=== PATIENT | female | born 1950 | race African-American/Black ===

== ENCOUNTER → 2016-08-24 | Outpatient (CLI) | payer OTHER ==
[~2016-08-24] MED LIST: LISI10TA PO; ZOLP1TAB32 PO
[2016-08-24 07:48] LABS: HEMATOCRIT 36.1 % (35.0-46.0); MEAN CELL VOLUME 80.7 FL (80.0-100.0); MEAN CORPUSCULAR HGB CONC 33.4 % (32.0-36.0); PLATELET COUNT 334 TH/MM3 (150-450); RED BLOOD COUNT 4.48 MIL/MM3 (4.00-5.30); RED CELL DISTRIBUTION WIDTH 13.7 % (11.6-17.2); REVIEW FLAG FINAL; WHITE BLOOD COUNT 5.6 TH/MM3 (4.0-11.0)
[2016-08-24 08:38] LABS: ALKALINE PHOSPHATASE 91 U/L (45-117); ALT (GPT) 16 U/L (10-53); ANION GAP 11 MEQ/L (5-15); AST (GOT) 18 U/L (15-37); BICARBONATE 27.2 MEQ/L (21.0-32.0); BLOOD UREA NITROGEN 11 MG/DL (7-18); CHLORIDE 101 MEQ/L (98-107); GLOMERULAR FILTRATION RATE 83 ML/MIN (>89); GLUCOSE,FASTING 97 MG/DL (74-99); LDL CHOLESTEROL 157 MG/DL (0-99); POTASSIUM 3.5 MEQ/L (3.5-5.1); SODIUM (NA) 139 MEQ/L (136-145); TOTAL BILIRUBIN ADULT 0.3 MG/DL (0.2-1.0)
== END ==
LOC: CLAB 07:13
PROVIDERS: ATTEND Family Medicine
DX: I10 Essential (primary) hypertension (principal); G47.00 Insomnia, unspecified; E87.6 Hypokalemia; E55.9 Vitamin D deficiency, unspecified; R53.83 Other fatigue
CPT/HCPCS: 36415; 80053; 80061; 82306; 84443; 85027

== ENCOUNTER → 2017-01-27 | Outpatient (CLI) | payer OTHER ==
[2017-01-27 08:24] LABS: HEMATOCRIT 33.5 % (35.0-46.0); MEAN CELL VOLUME 82.8 FL (80.0-100.0); MEAN CORPUSCULAR HEMOGLOBIN 27.3 PG (27.0-34.0); MEAN CORPUSCULAR HGB CONC 32.9 % (32.0-36.0); PLATELET COUNT 319 TH/MM3 (150-450); RED BLOOD COUNT 4.05 MIL/MM3 (4.00-5.30); RED CELL DISTRIBUTION WIDTH 12.8 % (11.6-17.2); REVIEW FLAG FINAL; WHITE BLOOD COUNT 5.4 TH/MM3 (4.0-11.0)
[2017-01-27 08:43] LABS: ANION GAP 6 MEQ/L (5-15); AST (GOT) 12 U/L (15-37); BLOOD UREA NITROGEN 13 MG/DL (7-18); CHLORIDE 104 MEQ/L (98-107); GLOMERULAR FILTRATION RATE 94 ML/MIN (>89); GLUCOSE,FASTING 87 MG/DL (74-99); POTASSIUM 3.5 MEQ/L (3.5-5.1); SODIUM (NA) 139 MEQ/L (136-145)
[2017-01-27 08:44] LABS: ALT (GPT) 15 U/L (10-53)
[2017-01-27 08:53] LABS: ALKALINE PHOSPHATASE 81 U/L (45-117); HDL CHOLESTEROL 47.3 MG/DL (40.0-60.0); LDL CHOLESTEROL 139 MG/DL (0-99); TOTAL BILIRUBIN ADULT 0.4 MG/DL (0.2-1.0)
== END ==
LOC: CLAB 07:45
PROVIDERS: ATTEND Family Medicine
DX: I10 Essential (primary) hypertension (principal); G47.00 Insomnia, unspecified; E87.6 Hypokalemia; E55.9 Vitamin D deficiency, unspecified; R53.83 Other fatigue; Z91.09 Other allergy status, other than to drugs and biological substances
CPT/HCPCS: 36415; 80053; 80061; 82306; 84443; 85027

== ENCOUNTER → 2017-03-05 | Outpatient (CLI) | payer OTHER ==
[2017-03-05 07:59] LABS: AUTOMATED NEUTROPHIL # 1.8 TH/MM3 (1.8-7.7); BASOPHIL % 0.3 % (0.0-2.0); EOSINOPHIL # 0.1 TH/MM3 (0-0.4); EOSINOPHIL % 1.3 % (0.0-4.0); HEMATOCRIT 33.8 % (35.0-46.0); HEMO FLAGS DIFF FINAL; LYMPH % 48.8 % (9.0-44.0); LYMPHOCYTE # 2.2 TH/MM3 (1.0-4.8); MEAN CELL VOLUME 82.9 FL (80.0-100.0); MEAN CORPUSCULAR HGB CONC 32.6 % (32.0-36.0); MONO % 9.8 % (0.0-8.0); NEUT % 39.8 % (16.0-70.0); PLATELET COUNT 300 TH/MM3 (150-450); RED BLOOD COUNT 4.08 MIL/MM3 (4.00-5.30); RED CELL DISTRIBUTION WIDTH 13.5 % (11.6-17.2); RETIC % 1.5 % (0.4-3.0); REVIEW FLAG FINAL; WHITE BLOOD COUNT 4.6 TH/MM3 (4.0-11.0)
[2017-03-05 08:36] LABS: TRANSFERRIN IRON PROFILE 244 MG/DL (200-360)
[2017-03-05 09:10] LABS: FERRITIN 348 NG/ML (8-252)
== END ==
LOC: CLAB 07:24
PROVIDERS: ATTEND Family Medicine
DX: D64.9 Anemia, unspecified (principal)
CPT/HCPCS: 36415; 82607; 82728; 82746; 83010; 83540; 83550; 85025; 85044; 86880

== ENCOUNTER → 2017-03-30 | Outpatient (CLI) | payer OTHER ==
[2017-03-30 07:53] LABS: BLOOD, URINE NEG (NEG); GLUCOSE,URINE NEG (NEG); KETONE, URINE NEG (NEG); MUCUS URINE FEW /lpf (OCC); NITRITE,URINE NEG (NEG); PH, URINE 5.5 (5.0-8.5); SQUAMOUS EPITHELIAL CELL URINE <1 /hpf (0-5); URINE COLOR YELLOW (YELLW/STRAW)
[2017-03-31 23:52] LABS: THYROGLOBULN 8.3 ng/mL (2.8-40.9)
== END ==
LOC: CLAB 07:23
PROVIDERS: ATTEND Allergy & Immunology
DX: D89.89 Other specified disorders involving the immune mechanism, not elsewhere classified (principal)
CPT/HCPCS: 36415; 81001; 84432; 85652; 86038; 86800

== ENCOUNTER → 2017-06-28 | Outpatient (CLI) | payer OTHER ==
[~2017-06-28] MED LIST changes: +AMBI10TA PO; +LAMI250T PO; +VITA1000 PO; -ZOLP1TAB32 PO
[2017-06-28 08:12] LABS: HEMATOCRIT 32.9 % (35.0-46.0); HEMOGLOBIN 10.9 GM/DL (11.6-15.3); MEAN CELL VOLUME 82.1 FL (80.0-100.0); MEAN CORPUSCULAR HEMOGLOBIN 27.2 PG (27.0-34.0); MEAN CORPUSCULAR HGB CONC 33.1 % (32.0-36.0); MEAN PLATELET VOLUME 7.7 FL (7.0-11.0); PLATELET COUNT 308 TH/MM3 (150-450); RED BLOOD COUNT 4.01 MIL/MM3 (4.00-5.30); RED CELL DISTRIBUTION WIDTH 13.7 % (11.6-17.2)
[2017-06-28 08:36] LABS: ALBUMIN 3.8 GM/DL (3.4-5.0); AST (GOT) 14 U/L (15-37); BICARBONATE 29.3 MEQ/L (21.0-32.0); BLOOD UREA NITROGEN 9 MG/DL (7-18); CALCIUM 8.9 MG/DL (8.5-10.1); CHLORIDE 102 MEQ/L (98-107); CREATININE 0.75 MG/DL (0.50-1.00); GLOMERULAR FILTRATION RATE 94 ML/MIN (>89); GLUCOSE,FASTING 85 MG/DL (74-99); SODIUM (NA) 139 MEQ/L (136-145)
[2017-06-28 08:37] LABS: ALT (GPT) 15 U/L (10-53); CHOLESTEROL 207 MG/DL (120-200); TRIGLYCERIDES 121 MG/DL (42-150)
[2017-06-28 08:46] LABS: ALKALINE PHOSPHATASE 81 U/L (45-117); CHOLESTEROL/ HDL RATIO 4.51 RATIO; HDL CHOLESTEROL 45.8 MG/DL (40.0-60.0); LDL CHOLESTEROL 137 MG/DL (0-99); TOTAL BILIRUBIN ADULT 0.4 MG/DL (0.2-1.0); TOTAL PROTEIN 8.1 GM/DL (6.4-8.2)
== END ==
LOC: CLAB 07:30
PROVIDERS: ATTEND Family Medicine
DX: I10 Essential (primary) hypertension (principal); G47.00 Insomnia, unspecified; E87.6 Hypokalemia; E55.9 Vitamin D deficiency, unspecified; R53.83 Other fatigue; Z91.09 Other allergy status, other than to drugs and biological substances; Z68.26 Body mass index [BMI] 26.0-26.9, adult
CPT/HCPCS: 36415; 80053; 80061; 82306; 84443; 85027

== ENCOUNTER 2017-07-27 18:15 | Observation (INO) | payer OTHER ==
[~2017-07-27] VITALS: Ht 165.1 cm; Wt 60.0 kg
[2017-07-27 18:25] VITALS: BP 131/73; PULSE 72; RESP 18; TEMP 98.4; O2SAT 98
--- NOTE | 2017-07-27 19:40 | RADRPT ---
EXAM DATE/TIME: 07/27/2017 18:46 [place] COMPARISON: No previous studies available for comparison. INDICATIONS : Chest pain. MEDICAL HISTORY : Hypertension. SURGICAL HISTORY : None. ENCOUNTER: Initial ACUITY: 2 days PAIN SCORE: 4/10 LOCATION: Bilateral chest FINDINGS: PA and lateral views of the chest demonstrate the lungs to be symmetrically aerated without evidence of mass, infiltrate or effusion. The cardiomediastinal contours are unremarkable. Osseous structure s are intact. CONCLUSION: 1. No active disease. Mild kyphosis. Fabian Mckoy MD on July 27, 2017 at 19:38 Board Certified Radiologist. This report was verified electronically.
[2017-07-27 19:43] LABS: BASOPHIL % 0.5 % (0.0-2.0); EOSINOPHIL # 0.1 TH/MM3 (0-0.4); EOSINOPHIL % 1.3 % (0.0-4.0); HEMATOCRIT 34.2 % (35.0-46.0); HEMOGLOBIN 11.3 GM/DL (11.6-15.3); LYMPH % 50.3 % (9.0-44.0); LYMPHOCYTE # 2.6 TH/MM3 (1.0-4.8); MEAN CORPUSCULAR HEMOGLOBIN 26.8 PG (27.0-34.0); MEAN PLATELET VOLUME 7.7 FL (7.0-11.0); MONO % 9.3 % (0.0-8.0); MONOCYTE # 0.5 TH/MM3 (0-0.9); NEUT % 38.6 % (16.0-70.0); PLATELET COUNT 330 TH/MM3 (150-450); RED BLOOD COUNT 4.21 MIL/MM3 (4.00-5.30); RED CELL DISTRIBUTION WIDTH 12.8 % (11.6-17.2); WHITE BLOOD COUNT 5.2 TH/MM3 (4.0-11.0)
[2017-07-27 19:51] LABS: INTERNATIONAL NORMALIZED RATIO 1.1 RATIO; PROTHROMBIN TIME - PATIENT 11.2 SEC (9.8-11.6)
[2017-07-27 20:09] LABS: BICARBONATE 29.9 MEQ/L (21.0-32.0); BLOOD UREA NITROGEN 11 MG/DL (7-18); CALCIUM 9.5 MG/DL (8.5-10.1); CHLORIDE 102 MEQ/L (98-107); CREATININE 0.76 MG/DL (0.50-1.00); GLOMERULAR FILTRATION RATE 93 ML/MIN (>89); GLUCOSE,RANDOM 103 MG/DL (74-106); SODIUM (NA) 139 MEQ/L (136-145); TROPONIN I LESS THAN 0.02 NG/ML (0.02-0.05)
[2017-07-27 20:26] VITALS: BP 161/78; PULSE 64; RESP 18; O2SAT 96
--- NOTE | 2017-07-27 20:34 | PD ---
HPI Chief Complaint: Chest Pain Time Seen by Provider: 20:21 Travel History International Travel<30 days: No Contact w/Intl Traveler<30days: No Traveled to known affect area: No History of Present Illness HPI The patient is a 66 year old female who presents to the [facility] emergency department with a history of chest pain that she reports is located below the left breast. It began on Wednesday afternoon. She reports that she is in the process of moving and moved a lot of boxes on her own on Wednesday. She reports that Wednesday she began to have this dull aching sensation and fatigue. She reports that the pain is been constant. She reports that the pain is not worsened with movements. She denies having any nausea, diaphoresis, or shortness of breath associated with this. She denies having any radiation of the pain. She reports that she went back to work today and noticed that she was also having palpitations with activity. She called her primary care physician, Dr. Hinkle and was told to come to the emergency department due to her significant family history of heart disease. She reports having a family history of heart disease in her mother and 2 sisters. The patient has a personal history of high blood pressure. She denies any history of hyperlipidemia, diabetes mellitus, history of GA or congestive heart failure , history of DVT or PE. On review of systems otherwise, she denies having any lower extremity edema, calf pain, calf erythema, recent fevers, cough, congestion, neck pain, abdominal pain, vomiting, diarrhea, urinary symptoms, or neurologic symptoms. The patient reports that her last stress test was done over 10 years ago. [facility] Past Medical History Narrative Medical The patient's past medical history is significant for hypertension. Cancer: No Cardiovascular Problems: No Diabetes: No Endocrine: No Genitourinary: No Hepatitis: No Hiatal Hernia: No Hypertension: Yes Immune Disorder: No Musculoskeletal: No Neurologic: No Reproductive: No Respiratory: No Thyroid Disease: No Past Surgical History Narrative Surgical The patient's past surgical history is significant for 3, history of hysterectomy, bilateral breast reduction. Abdominal Surgery: No AICD: No Body Medical Devices: NONE Cardiac Surgery: No Section: Yes Ear Surgery: No Endocrine Surgery: No Eye Surgery: No Genitourinary Surgery: No Gynecologic Surgery: Yes (C SECTION X 3; HYSTERECTOMY TOTAL ) Hysterectomy: Yes (X3) Joint Replacement: No Oral Surgery: No Pacemaker: No Thoracic Surgery: Yes (BRIDGETT BREAST REDUCTION ) Social History Alcohol Use: No Tobacco Use: No Substance Use: No Allergies-Medications (Allergen,Severity, Reaction): Coded Allergies: acetaminophen (Unverified Allergy, Severe, Diarrhea, 04/14/17) propoxyphene (Unverified Allergy, Severe, Diarrhea, 04/14/17) *MDRO Multi-Drug Resistant Organism (Unverified Adverse Reaction, Unknown , 04/14/17) 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 Reported Meds & Prescriptions Reported Meds & Active Scripts Active Reported Vitamin D-1000 (Cholecalciferol) 1,000 Unit Tab 5,000 Units PO DAILY Ambien (Zolpidem Tartrate) 10 Mg Tab 10 Mg PO HS PRN Lisinopril-Hctz 10-12.5 Mg Tab 1 Tab PO DAILY Review of Systems Except as stated in HPI: all other systems reviewed are Neg General / Constitutional: No: Fever Eyes: No: Visual changes HENT: No: Headaches Cardiovascular: Positive: Chest Pain or Discomfort, Palpitations, Tachycardia Respiratory: No: Shortness of Breath Gastrointestinal: No: Nausea, Vomiting, Diarrhea, Abdominal Pain Genitourinary: No: Dysuria Musculoskeletal: No: Pain Skin: No Rash Neurologic: Positive: Weakness (Generalized weakness, fatigue), No: Focal Abnormalities, Change in Mentation, Slurred Speech, Sensory Disturbance Psychiatric: No: Depression Endocrine: No: Polydipsia Hematologic/Lymphatic: No: Easy Bruising Physical Exam Narrative General: The patient is a well-developed well-nourished female in no acute distress. Head and Neck exam: Head is normocephalic atraumatic. Eyes: EOMI, pupils are equal round and reactive to light. Nose: Midline septum with pink mucous membranes Mouth: Dentition unremarkable. Moist mucus membranes. Posterior oropharynx is not erythematous. No tonsillar hypertrophy. Uvula midline. Airway patent. Neck: No palpable lymphadenopathy. No nuchal rigidity. No thyromegaly. Cardiovascular: Regular rate and rhythm without murmurs, gallops, or rubs. The patient reports having some chest wall tenderness underneath the left breast. There is no step- off or crepitus. No erythema or ecchymosis. No flail segment. Lungs: Clear to auscultation bilaterally. No wheezes, rhonchi, or rales. Abdomen: Soft, without tenderness to palpation in all 4 quadrants of the abdomen. No guarding, rebound, or rigidity. Normal bowel sounds are audible. No tenderness on palpation of McBurney's point. Negative Padron sign. Extremities: No clubbing, cyanosis, or edema. 2+ pulses in all 4 extremities. No calf tenderness on palpation. Back: No spinous process tenderness to palpation. No costovertebral angle tenderness to palpation. Neurologic Exam: Grossly nonfocal. Skin Exam: No rash noted. Intact skin that is warm and dry. Data Data Last Documented VS Vital Signs Date Time Temp Pulse Resp B/P (MAP) Pulse Ox O2 Delivery O2 Flow Rate FiO2 07/27/17 20:26 64 18 161/78 (105) 96 Room Air 07/27/17 18:25 98.4 Orders Orders Electrocardiogram (07/27/17 18:27) Basic Metabolic Panel (Bmp) (07/27/17 18:27) Ckmb (Isoenzyme) Profile (07/27/17 18:27) Complete Blood Count With Diff (07/27/17 18:27) Magnesium (Mg) (07/27/17 18:27) Prothrombin Time / Inr (Pt) (07/27/17 18:27) Act Partial Throm Time (Ptt) (07/27/17 18:27) Troponin I (07/27/17 18:27) Chest, Pa & Lat (07/27/17 18:27) CKMB (07/27/17 18:09) CKMB% (07/27/17 18:09) Nitroglycerin Sl (Nitrostat Sl) (07/27/17 20:45) Ns + Kcl 20 Meq Inj (Ns + Kcl 20 Meq Inj (07/27/17 20:45) Aspirin Chew (Aspirin Chew) (07/27/17 20:45) Potassium Chloride Eff (K-Lyte Cl Eff) (07/27/17 21:30) Admit Order (Ed Use Only) (07/27/17 21:29) Labs Laboratory Tests Test 07/27/17 18:09 White Blood Count 5.2 TH/MM3 Red Blood Count 4.21 MIL/MM3 Hemoglobin 11.3 GM/DL Hematocrit 34.2 % Mean Corpuscular Volume 81.0 FL Mean Corpuscular Hemoglobin 26.8 PG Mean Corpuscular Hemoglobin Concent 33.0 % Red Cell Distribution Width 12.8 % Platelet Count 330 TH/MM3 Mean Platelet Volume 7.7 FL Neutrophils (%) (Auto) 38.6 % Lymphocytes (%) (Auto) 50.3 % Monocytes (%) (Auto) 9.3 % Eosinophils (%) (Auto) 1.3 % Basophils (%) (Auto) 0.5 % Neutrophils # (Auto) 2.0 TH/MM3 Lymphocytes # (Auto) 2.6 TH/MM3 Monocytes # (Auto) 0.5 TH/MM3 Eosinophils # (Auto) 0.1 TH/MM3 Basophils # (Auto) 0.0 TH/MM3 CBC Comment DIFF FINAL Differential Comment Prothrombin Time 11.2 SEC Prothromb Time International Ratio 1.1 RATIO Activated Partial Thromboplast Time 25.2 SEC Blood Urea Nitrogen 11 MG/DL Creatinine 0.76 MG/DL Random Glucose 103 MG/DL Calcium Level 9.5 MG/DL Magnesium Level 2.0 MG/DL Sodium Level 139 MEQ/L Potassium Level 2.8 MEQ/L Chloride Level 102 MEQ/L Carbon Dioxide Level 29.9 MEQ/L Anion Gap 7 MEQ/L Estimat Glomerular Filtration Rate 93 ML/MIN Total Creatine Kinase 311 U/L Creatine Kinase MB 1.2 NG/ML Creatine Kinase MB % 0.4 % Troponin I LESS THAN 0.02 NG/ML MDM Medical Decision Making Medical Screen Exam Complete: Yes Emergency Medical Condition: Yes Medical Record Reviewed: Yes Interpretation(s) Last Impressions Chest X-Ray 07/27/17 1827 Signed Impressions: Service Date/Time: Thursday, July 27, 2017 18:46 - CONCLUSION: 1. No active disease. Mild kyphosis. Fabian Mckoy MD Differential Diagnosis Acute coronary syndrome, versus muscle strain, versus acid reflux, versus cardiac arrhythmia Narrative Course During the course of the patient's emergency department visit, the patient's history, examination, and differential diagnosis were reviewed with the patient. The patient was placed on a media monitor with oximetry and frequent blood pressure monitoring. The patient had IV access obtained and blood work sent for analysis. The patient had an EKG done on arrival. The patient's EKG shows a sinus rhythm heart rate of 63, QRS duration is 104 ms, QTC 408 ms. The patient has left axis deviation noted. T waves are inverted in lead III, V1. No acute ST segment elevation The patient was initially provided aspirin 324 mg p.o. 1, nitroglycerin sublingual 1, maintenance IV fluids with potassium when hypokalemia was identified. The patient's laboratory studies were reviewed and remarkable for white count of 5.2, hemoglobin 11.3, platelets 330 with 50.3 lymphocytes, monocytes 9.3, CMP is remarkable for potassium of 2.8, CPK 311, MB percent 0.4, troponin I less than 0.02, PT PTT within normal limits Radiology studies were reviewed and remarkable for a chest x-ray that shows no acute cardiopulmonary disease. The patient's results were discussed with the patient, including the plan of care. I explained that further testing and/ or monitoring is indicated based on the patient's history, examination, and/ or laboratory findings. Therefore, I recommended admission for additional evaluation. The patient expressed understanding and was agreeable with this plan. The patient was admitted to the hospital in stable condition and sent to a bed under the care of chest pain center. Diagnosis Primary Impression: Chest pain, rule out acute myocardial infarction Additional Impression: FH: heart disease Admitting Information Admitting Physician Requests: Observation Eva Santamaria MD Jul 27, 2017 20:34
[2017-07-27] MEDS ORDERED: NITROGLYCERIN 0.4 MG SL 25 TABS/BTL SL ONE (20:45)
[2017-07-27] MEDS ORDERED: ASPIRIN 81 MG CHEW TAB CHEW ONE (20:45)
[2017-07-27] MEDS ORDERED: NS + KCL 20 MEQ INJ 1,000 ML IV SCH (20:45)
[2017-07-27] MEDS ORDERED: POTASSIUM CHLORIDE 25 MEQ EFFERVESCENT TAB PO ONE (21:30)
[2017-07-27] MEDS ORDERED: ACETAMINOPHEN 500 MG CPLT PO PRN (21:45)
[2017-07-27] MEDS ORDERED: SODIUM CHLORIDE 0.9% FLUSH 10 ML FLUSH IV FLUSH PRN (21:45)
[2017-07-27 22:08] VITALS: BP 116/65; PULSE 64; RESP 15; TEMP 97.4; O2SAT 98
[2017-07-27 23:47] LABS: TROPONIN I LESS THAN 0.02 NG/ML (0.02-0.05)
[2017-07-28 00:01] VITALS: PULSE 59
[2017-07-28 00:16] VITALS: BP 108/58; PULSE 61; RESP 16; TEMP 98.5; O2SAT 98
[2017-07-28 01:49] LABS: TROPONIN I LESS THAN 0.02 NG/ML (0.02-0.05)
[2017-07-28 04:35] VITALS: PULSE 54
[2017-07-28 04:39] VITALS: BP 97/51; PULSE 58; RESP 15; TEMP 98.3; O2SAT 96
[2017-07-28] MEDS ORDERED: NITROGLYCERIN 0.4 MG SL 25 TABS/BTL SL PRN (07:30)
[2017-07-28] MEDS ORDERED: ONDANSETRON HCL 4 MG/2 ML VIAL IV PUSH PRN (07:30)
[2017-07-28 07:34] LABS: BICARBONATE 26.6 MEQ/L (21.0-32.0); CALCIUM 8.8 MG/DL (8.5-10.1); CREATININE 0.62 MG/DL (0.50-1.00)
[2017-07-28 07:39] VITALS: BP 121/59; PULSE 65; RESP 18; TEMP 97.6; O2SAT 98
--- NOTE | 2017-07-28 08:14 | HHI.HP ---
HPI Primary Care Physician Shayy Montero MD Chief Complaint Palpations History of Present Illness 66-year-old female with history of hypertension presents the emergency room for further evaluation of feeling "ran down." In the process of moving, endorsing moving many boxes and pushing/pulling on Wednesday and Wednesday. History of breast reduction and since surgery reports intermittent left breast/left anterior chest discomfort described as dull, increased in frequency since moving. Denies having any chest pain or discomfort prior to arrival. Proceeded to work yesterday, however continued feeling fatigued. Decided to come to ER for further evaluation do to family history of heart disease. Review of Systems General: No fatigue,weakness, fever, chills, recent illness, or change in appetite. Has been in his general state of health. Currently in the process of moving. HEENT: No ODYLE, no vision changes, no nasal congestion or drainage, no dysphasia CV: As stated above. No current CP or pressure. RESP: No SOB, cough, wheeze GI: No nausea, vomiting, or bowel changes : No dysuria, urgency, frequency EXT: No lower leg edema, no paraesthesias MS: No known injury, trauma, or change in ROM. Does not remember or feel like she hurt herself while moving boxes over the weekend. 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 Past Medical History Hypertension Past Surgical History Breast reduction Reported Medications Reported Meds & Active Scripts Active Reported Vitamin D-1000 (Cholecalciferol) 1,000 Unit Tab 5,000 Units PO DAILY Ambien (Zolpidem Tartrate) 10 Mg Tab 10 Mg PO HS PRN Lisinopril-Hctz 10-12.5 Mg Tab 1 Tab PO DAILY Active Ordered Medications Current Medications Medications (Trade) Dose Ordered Sig/[place] Route Start Time Stop Time Status Last Admin Potassium Chloride/Sodium Chloride 1,000 ml @ 84 mls/hr [id number] IV 07/27/17 20:45 07/27/17 20:47 (NS Flush) 2 ml UNSCH PRN IV FLUSH 07/27/17 21:45 (NS Flush) 2 ml BID IV FLUSH 07/28/17 09:00 (Zofran Inj) 4 mg Q6H PRN IV PUSH 07/28/17 07:30 (Nitrostat Sl) 0.4 mg Q5M PRN SL 07/28/17 07:30 (Aspirin) 325 mg DAILY PO 07/28/17 09:00 Social History Known hypertension. No known diabetes, hyperlipidemia, or coronary artery disease. Lifelong non-smoker. Denies any alcohol use. 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 Past cardiac testing None Physical Exam Vital Signs Vital Signs Date Time Temp Pulse Resp B/P (MAP) Pulse Ox O2 Delivery O2 Flow Rate FiO2 07/28/17 07:39 97.6 65 18 121/59 (79) 98 07/28/17 04:39 98.3 58 15 97/51 (66) 96 07/28/17 04:35 54 07/28/17 03:11 21 07/28/17 00:16 98.5 61 16 108/58 (75) 98 07/28/17 00:01 59 07/27/17 22:08 97.4 64 15 116/65 (82) 98 07/27/17 20:26 64 18 161/78 (105) 96 Room Air 07/27/17 18:25 98.4 72 18 131/73 (92) 98 Physical Exam GENERAL: Alert WN, WD, NAD, pleasant, -Gambian female HEAD: NC, AT CV: RRR, without murmur, rub, gallop, no JVD, S1-S2 no S3-S4 RESP: Clear lungs throughout bilateral, no crackles, wheeze, rhonchi, symmetrical chest rise, nonlabored, able to speak in full sentences ABD: Soft, NT, ND, no masses, positive bowel tones EXT: Pulses +2x4, no dependent edema MS: Normal tone x4 extremities, nontender, no obvious deformities, full range of motion NEURO: CN II through CN XII grossly intact, motor strength 5/5 PSYCH: A+O -3, pleasant affect, appropriate speech, mood, insight and judgment SKIN: Normal turgor, normal texture, no lesions, no rashes, even hair distribution Laboratory Laboratory Tests Test 07/27/17 18:09 07/27/17 23:00 07/28/17 01:00 07/28/17 06:16 White Blood Count 5.2 Red Blood Count 4.21 Hemoglobin 11.3 Hematocrit 34.2 Mean Corpuscular Volume 81.0 Mean Corpuscular Hemoglobin 26.8 Mean Corpuscular Hemoglobin Concent 33.0 Red Cell Distribution Width 12.8 Platelet Count 330 Mean Platelet Volume 7.7 Neutrophils (%) (Auto) 38.6 Lymphocytes (%) (Auto) 50.3 Monocytes (%) (Auto) 9.3 Eosinophils (%) (Auto) 1.3 Basophils (%) (Auto) 0.5 Neutrophils # (Auto) 2.0 Lymphocytes # (Auto) 2.6 Monocytes # (Auto) 0.5 Eosinophils # (Auto) 0.1 Basophils # (Auto) 0.0 CBC Comment DIFF FINAL Differential Comment Prothrombin Time 11.2 Prothromb Time International Ratio 1.1 Activated Partial Thromboplast Time 25.2 Blood Urea Nitrogen 11 10 Creatinine 0.76 0.62 Random Glucose 103 83 Calcium Level 9.5 8.8 Magnesium Level 2.0 2.0 Sodium Level 139 143 Potassium Level 2.8 3.7 3.8 Chloride Level 102 111 Carbon Dioxide Level 29.9 26.6 Anion Gap 7 5 Estimat Glomerular Filtration Rate 93 117 Total Creatine Kinase 311 263 261 Creatine Kinase MB 1.2 1.2 Creatine Kinase MB % 0.4 0.5 Troponin I LESS THAN 0.02 LESS THAN 0.02 LESS THAN 0.02 Result Diagram: 07/27/17 1809 07/28/17 0616 Imaging Last 48 hours Impressions Chest X-Ray 07/27/17 1827 Signed Impressions: Service Date/Time: Thursday, July 27, 2017 18:46 - CONCLUSION: 1. No active disease. Mild kyphosis. Fabian Mckoy MD Course EKG NSR, LAD, no st t segment changes Caprini VTE Risk Assessment Caprini VTE Risk Assessment: Mod/High Risk (score >= 2) Caprini Risk Assessment Model Point Value = 1 Point Value = 2 Point Value = 3 Point Value = 5 Age 41-60 Minor surgery BMI > 25 kg/m2 Swollen legs Varicose veins or History of unexplained or recurrent spontaneous Oral contraceptives or hormone replacement Sepsis (< 1 month) Serious lung disease, including pneumonia (< 1 month) Abnormal pulmonary function Acute myocardial infarction Congestive heart failure (< 1 month) History of inflammatory bowel disease Medical patient at bed rest Age 61-74 Arthroscopic surgery Major open surgery (> 45 min) Laparoscopic surgery (> 45 min) Malignancy Confined to bed (> 72 hours) Immobilizing plaster cast Central venous access Age >= 75 History of VTE Family history of VTE Factor V Leiden Prothrombin [id number] Lupus anticoagulant Anticardiolipin antibodies Elevated serum homocysteine Heparin-induced thrombocytopenia Other congenital or acquired thrombophilia Stroke (< 1 month) Elective arthroplasty Hip, pelvis, or leg fracture Acute spinal cord injury (< 1 month) Prophylaxis Regimen Total Risk Factor Score Risk Level Prophylaxis Regimen 0-1 Low Early ambulation 2 Moderate Order ONE of the following: *Sequential Compression Device (SCD) *Heparin 5000 units SQ BID 3-4 Higher Order ONE of the following medications: *Heparin 5000 units SQ TID *Enoxaparin/Lovenox 40 mg SQ daily (WT < 150 kg, CrCl > 30 mL/min) *Enoxaparin/Lovenox 30 mg SQ daily (WT < 150 kg, CrCl > 10-29 mL/min) *Enoxaparin/Lovenox 30 mg SQ BID (WT < 150 kg, CrCl > 30 mL/min) AND/OR *Sequential Compression Device (SCD) 5 or more Highest Order ONE of the following medications: *Heparin 5000 units SQ TID (Preferred with Epidurals) *Enoxaparin/Lovenox 40 mg SQ daily (WT < 150 kg, CrCl > 30 mL/min) *Enoxaparin/Lovenox 30 mg SQ daily (WT < 150 kg, CrCl > 10-29 mL/min) *Enoxaparin/Lovenox 30 mg SQ BID (WT < 150 kg, CrCl > 30 mL/min) AND *Sequential Compression Device (SCD) Assessment and Plan Assessment and Plan #1 Atypical chest discomfort-admitted to chest pain center. Ruled out with 3 sets of EKGs, cardiac enzymes, and monitored on telemetry overnight. Seen and evaluated by Dr. Mp Vasquez. Proceed with exercise stress test. If unremarkable, plans will be to discharge to follow-up with PCP. Patient agreeable plan of care. #2 Hypokalemia-potassium on admission 2.9. 50 mEq KCl provided in ER. Repeat potassium level 3.7. Taking low dose HCTZ which could contribute to low GILMA. Follow-up with PCP, no plans to discontinue HCTZ at this time. Discussed low potassium level most likely contributed to her fatigue. Encouraged her to call her PCP office upon discharge for follow up appointment. Jie Garcia Jul 28, 2017 08:14
[2017-07-28] MEDS ORDERED: SODIUM CHLORIDE 0.9% FLUSH 10 ML FLUSH IV FLUSH SCH (09:00)
[2017-07-28] MEDS ORDERED: ASPIRIN 325 MG TAB PO SCH (09:00)
--- NOTE | 2017-07-28 10:16 | HHI.DCPOC ---
Discharge Care Plan Diagnosis: (1) Atypical chest pain Goals to Promote Your Health * To prevent worsening of your condition and complications * To maintain your health at the optimal level Directions to Meet Your Goals Take your medications as prescribed Follow your dietary instruction Follow activity as directed Keep your appointments as scheduled Take your immunizations and boosters as scheduled If your symptoms worsen call your PCP, if no PCP go to Urgent Care Center or Emergency Room Smoking is Dangerous to Your Health. Avoid second hand smoke Call the 24-hour hour crisis hotline for domestic abuse at Jie Garcia Jul 28, 2017 10:15
--- NOTE | 2017-07-28 12:49 | EKG ---
Date Performed: 07/28/2017 Time Performed: 00:35:50 PTAGE: 66 years EKG: SINUS BRADYCARDIA MARKED LEFT AXIS DEVIATION ABNORMAL ECG PREVIOUS TRACING : 07/27/2017 22.42 Since previous tracing, no significant change noted DOCTOR: Mp Vasquez Interpretating Date/Time 07/28/2017 12:47:08
--- NOTE | 2017-07-28 12:49 | EKG ---
Date Performed: 07/27/2017 Time Performed: 22:42:26 PTAGE: 66 years EKG: SINUS BRADYCARDIA MARKED LEFT AXIS DEVIATION ABNORMAL ECG PREVIOUS TRACING : 07/27/2017 19.03 \Since previous tracing, no significant change noted DOCTOR: Mp Vasquez Interpretating Date/Time 07/28/2017 12:47:43
--- NOTE | 2017-07-28 12:50 | EKG ---
Date Performed: 07/27/2017 Time Performed: 19:03:55 PTAGE: 66 years EKG: Sinus rhythm MARKED LEFT AXIS DEVIATION ABNORMAL ECG PREVIOUS TRACING : 01/12/2014 10.22 Since previous tracing, no significant change noted DOCTOR: Mp Vasquez Interpretating Date/Time 07/28/2017 12:48:15
--- NOTE | 2017-07-28 12:51 | TR ---
Date Performed: 07/28/2017 Time Performed: 09:51:49 DOCTOR: Mp Vasquez DRUG LIST: CLINICAL HISTORY: CP R//O ACS REASON FOR TEST: REASON FOR ENDING: OBSERVATION: CONCLUSION: Modified mini protocol completed. Speed modified in stage 3. Maximum JX=656 % Targe t HR Achieved=87.0 Maximum GQ=998/70 Total Exercise Time=6:32. No reprod chest discomfort. No ectopy. Good exercise tolerance. No st t segment changes. Normal bp response. Recovery quick and unremarkabl e. COMMENTS: Patient exercised using the Mini protocol. No electrocardiographic changes were seen to suggest ischemia. Hemodynamic response to exercise was normal. No significant arrhythmia was prese nt.
== END 2017-07-28 11:09 | disposition home or self-care (01) ==
LOC: NEPC 18:15 → NEDA 21:32 → NEPGCP 22:03
PROVIDERS: ADMIT Internal Medicine Interventional Cardiology; ATTEND Internal Medicine Interventional Cardiology
DX: R07.89 Other chest pain (principal); E87.6 Hypokalemia; I10 Essential (primary) hypertension; R00.2 Palpitations; R00.1 Bradycardia, unspecified; R94.31 Abnormal electrocardiogram [ECG] [EKG]; M40.209 Unspecified kyphosis, site unspecified; Z79.899 Other long term (current) drug therapy
CPT/HCPCS: 71046; 80048; 82550; 82552; 83735; 84132; 84484; 85025; 85610; 85730; 93005; 93017; 96365; 96366; 99285; G0378; J3480

== ENCOUNTER → 2017-10-01 | Outpatient (CLI) | payer OTHER ==
[~2017-10-01] MED LIST changes: -LAMI250T PO
[2017-10-01 08:01] LABS: BICARBONATE 28.6 MEQ/L (21.0-32.0); CALCIUM 9.4 MG/DL (8.5-10.1); CREATININE 0.87 MG/DL (0.50-1.00)
== END ==
LOC: CLAB 07:10
PROVIDERS: ATTEND Family Medicine
DX: E87.6 Hypokalemia (principal)
CPT/HCPCS: 36415; 80048